=== PATIENT | female | born 1960 | race African-American/Black ===

== ENCOUNTER → 2023-03-08 | Day surgery (SDC) | payer OTHER ==
[2023-03-04 15:11] VITALS: BMI 21.6
== END ==
LOC: EDBD → MRI 11:54 → EDSTATUS 13:00 → EDBD 13:00
PROVIDERS: ATTEND Family Medicine
DX: I63.9 Cerebral infarction, unspecified (principal); Z79.02 Long term (current) use of antithrombotics/antiplatelets; Z79.82 Long term (current) use of aspirin; Z79.899 Other long term (current) drug therapy; Z88.8 Allergy status to other drugs, medicaments and biological substances; Z91.041 Radiographic dye allergy status